=== PATIENT | female | born 1955 | race Caucasian/White ===

== ENCOUNTER → 2023-04-10 | Outpatient (CLI) | payer MEDICARE, BC ==
--- NOTE | 2023-04-12 19:09 | MR ---
EXAMINATION TYPE: MR lumbar spine wo con DATE OF EXAM: 04/10/2023 11:21 AM COMPARISON: None. CLINICAL INDICATION: Female, 67 years old with history of M54.16 RADICULOPATHY, LUMBAR REGION;Lower b ack and left hip pain. TECHNIQUE: Multi planar, multi sequence imaging was performed utilizing: T1-weighted, T2-weighted, a nd turbo inversion recovery imaging of the lumbar spine. IV Contrast: None FINDINGS: Alignment: The lumbar vertebral bodies have preserved heights grade 1 anterolisthesis of L4 and L5. M ild bony edema on the right pedicle at this level. Cord: The conus medullaris and the distal spinal cord appear unremarkable with regards to their signa l intensity and morphology. Bones/Discs: Multilevel degeneration changes with disc space narrowing, osteophyte formation and face t joint arthropathy. Disc desiccation is present multiple areas. T12-L1: No evidence of significant spinal canal stenosis or neural foraminal stenosis. L1-L2: No evidence of significant spinal canal stenosis or neural foraminal stenosis. L2-L3: No evidence of significant spinal canal stenosis. Facet joint arthropathy mild bilateral neura l foraminal stenosis. L3-L4: No evidence of significant spinal canal stenosis. Facet joint arthropathy mild bilateral neura l foraminal stenosis. L4-L5: Disc uncovering from grade 1 anterolisthesis and facet joint arthropathy with mild spinal maico l stenosis and mild bilateral neural foraminal stenosis. L5-S1: The disc is rounded posterior morphology without significant spinal canal stenosis. Facet join t arthropathy with mild neural foraminal stenosis. No significant spinal canal or neural foraminal stenosis in the remainder of the visualized levels. Other findings: None. IMPRESSION: 1. No definitive evidence of disc herniation or significant spinal canal stenosis. 2. Mild disc degeneration with associated osteoarthritic changes. 3. Grade 1 anterolisthesis of L4 on L5 with some stress reaction edema on the right pedicle.
== END | disposition home or self-care (01) ==
LOC: RADMRIMAIN 10:26
PROVIDERS: ATTEND Family Medicine
DX: M51.16 Intervertebral disc disorders with radiculopathy, lumbar region (principal); M43.16 Spondylolisthesis, lumbar region; M47.26 Other spondylosis with radiculopathy, lumbar region; M25.552 Pain in left hip; R60.0 Localized edema
CPT/HCPCS: 72148

== ENCOUNTER 2024-06-06 21:47 | Emergency (ER) | payer MEDICARE, BC ==
[2024-06-06 21:57] VITALS: RESP 20; TEMP 98.1
--- NOTE | 2024-06-06 22:24 | ED ---
Upper Extremity HPI - General Chief Complaint: Extremity Injury, Upper Stated Complaint: Fall/R Elbow Injury Time Seen by Provider: 06/06/24 22:21 Source: patient, RN notes reviewed Mode of arrival: ambulatory Limitations: no limitations - History of Present Illness Initial Comments: 68-year-old female presenting with left elbow injury x 7 hours ago. States she tripped and fell, hit her left elbow directly on concrete when she landed. Denies head injury or other injuries. Denies loss of consciousness. States since the fall, she has been icing her elbow, however the pain and swelling has increased. She states she cannot fully extend or flex her elbow. Denies numbness or tingling. - Related Data Allergies Allergy/AdvReac Type Severity Reaction Status Date / Time Penicillins Allergy Unknown Verified 06/06/24 21:57 Sulfa (Sulfonamide Allergy Nausea & Verified 06/06/24 21:57 Antibiotics) Vomiting & Diarrhea Review of Systems ROS Statement: Those systems with pertinent positive or pertinent negative responses have been documented in the HPI. ROS Other: All systems not noted in ROS Statement are negative. Past Medical History Past Medical History: Cancer History of Any Multi-Drug Resistant Organisms: None Reported Past Surgical History: No Surgical Hx Reported Past Psychological History: Anxiety Smoking Status: Never smoker Past Alcohol Use History: Occasional Past Drug Use History: Marijuana General Exam Limitations: no limitations General appearance: alert, in no apparent distress Head exam: Present: atraumatic, normocephalic, normal inspection Left Shoulder Exam: Present: normal inspection, full ROM. Absent: tenderness, swelling Upper Arm exam: Present: normal inspection, full ROM. Absent: tenderness, swelling Elbow exam: Present: tenderness, swelling. Absent: normal inspection (Diffuse edema on dorsal aspect of left elbow with tenderness to palpation along olecranon process. Limited full extension and full flexion of elbow.), full ROM Forearm Wrist exam: Present: normal inspection, full ROM. Absent: tenderness, swelling Hand Wrist exam: Present: normal inspection, full ROM. Absent: tenderness, swelling Vascular: Present: normal capillary refill, radial pulse (Sensation intact to bilateral upper extremities). Absent: vascular compromise Course Vital Signs 06/06/24 06/06/24 21:55 23:58 Temperature 98.1 F Pulse Rate 106 H 85 Respiratory 20 20 Rate Blood Pressure 150/99 160/98 O2 Sat by Pulse 97 99 Oximetry Procedures - Orthopedic Splinting/Casting Injury #1 Side: left Upper Extremity Injury Location: long arm Upper Extremity Immobilizer: posterior splint Other Orthopedic Equipment: other (Sling provided) Additional Comments: Neurovascularly intact status post procedure Medical Decision Making - Medical Decision Making Was pt. sent in by a medical professional or institution (, PA, [employer], urgent care, hospital, or [facility]...) When possible be specific @ -No Did you speak to anyone other than the patient for history (EMS, parent, family, police, friend...)? What history was obtained from this source @ -No Did you review nursing and triage notes (agree or disagree)? Why? @ -I reviewed and agree with nursing and triage notes Were old charts reviewed (outside hosp., previous admission, EMS record, old EKG, old radiological studies, urgent care reports/EKG's, [facility] records)? Report findings @ -No old charts were reviewed Differential Diagnosis (chest pain, altered mental status, abdominal pain women, abdominal pain men, vaginal bleeding, weakness, fever, dyspnea, syncope, headache, dizziness, GI bleed, back pain, seizure, CVA, palpatations, mental health, musculoskeletal)? @ -Differential Musculoskeletal Muscular strain, contusion, ligament sprain, fracture, arthritis, septic arthritis, bursitis, cellulitis, muscle spasm, nerve compression, DVT, arterial occlusion, herpes zoster, electrolyte abnormality, tumor.... This is not meant to be in all inclusive list EKG interpreted by me (3pts min.). @ -None X-rays interpreted by me (1pt min.). @ -X-ray revealed acute minimally displaced intra-articular fracture through radial head CT interpreted by me (1pt min.). @ -None done U/S interpreted by me (1pt. min.). @ -None done What testing was considered but not performed or refused? (CT, X-rays, U/S, labs)? Why? @ -None What meds were considered but not given or refused? Why? @ -None Did you discuss the management of the patient with other professionals (professionals i.e. AMANDA Gaona, [employer], lab, RT, psych nurse, social security assessor, parimutuel ticket cashier, teacher, airplane first officer, high risk case manager)? Give summary @ -No Was smoking cessation discussed for >3mins.? @ -No Was critical care preformed (if so, how long)? @ -No Were there social determinants of health that impacted care today? How? (Homelessness, low income, unemployed, alcoholism, drug addiction, transportation, low edu. Level, literacy, decrease access to med. care, shelter, rehab)? @ -No Was there de-escalation of care discussed even if they declined (Discuss DNR or withdrawal of care, Hospice)? DNR status @ -No What co-morbidities impacted this encounter? (DM, HTN, Smoking, COPD, CAD, Cancer, CVA, ARF, Chemo, Hep., AIDS, mental health diagnosis, sleep apnea, morbid obesity)? @ -None Was patient admitted / discharged? Hospital course, mention meds given and route, prescriptions, significant lab abnormalities, going to OR and other pertinent info. @ -Patient was discharged. This is a 68-year-old female presenting with left elbow injury earlier today. Patient is neurovascularly intact. X-ray revealed acute minimally displaced intra-articular fracture through her radial head. Findings discussed with patient. Posterior long-arm splint was applied and sling was given for support. Supportive care discussed. Advised orthopedic follow-up in 1 to 3 days and patient is agreeable to plan. Return precautions discussed. Case was discussed with my ED attending Dr. Tolliver. Patient discharged in stable condition. Undiagnosed new problem with uncertain prognosis? @ -No Drug Therapy requiring intensive monitoring for toxicity (Heparin, Nitro, Insulin, Cardizem)? @ -No Were any procedures done? @ -Steer long-arm splint Diagnosis/symptom? @ -Left radial head fracture Acute, or Chronic, or Acute on Chronic? @ -Acute Uncomplicated (without systemic symptoms) or Complicated (systemic symptoms)? @ -Uncomplicated Side effects of treatment? @ -No Exacerbation, Progression, or Severe Exacerbation? @ -No Poses a threat to life or bodily function? How? (Chest pain, [place], [place], pneumonia, PE, COPD, DKA, ARF, appy, cholecystitis, CVA, Diverticulitis, Homicidal, Suicidal, threat to staff... and all critical care pts) @ -No Disposition Clinical Impression: Left radial head fracture Disposition: HOME SELF-CARE Condition: Stable Instructions (If sedation given, give patient instructions): Elbow Fracture (ED) Additional Instructions: Follow up with orthopedics in 1-3 days. Keep splint dry. Use ice and elevation to left arm. Please return to the Emergency Department if symptoms worsen or any other concerns. Is patient prescribed a controlled substance at d/c from ED?: No Referrals: Slick Alex DO [Primary Care Provider] - 1-2 days Melo Robins MD [Medical Doctor] - 1-2 days Time of Disposition: 23:47
--- NOTE | 2024-06-06 22:39 | XR ---
EXAMINATION TYPE: XR elbow complete LT DATE OF EXAM: 06/06/2024 CLINICAL HISTORY: Fall injury with pain TECHNIQUE: Frontal, lateral and oblique images of the left elbow are obtained. COMPARISON: None FINDINGS: Suboptimal oblique positioning. There is acute slightly displaced intra-articular fracture through the radial aspect of the radial head seen on frontal view. Abnormal fat pad signs are noted o n lateral view. IMPRESSION: There is an acute minimally displaced intra-articular fracture through the radial head. [facility], , 06/06/2024 10:37 PM
[2024-06-07 00:08] VITALS: BP 160/98; PULSE 85
== END 2024-06-06 23:58 | disposition home or self-care (01) ==
LOC: EC 21:47

== ENCOUNTER → 2024-11-30 | Outpatient (CLI) | payer MEDICARE, BC | END | disposition home or self-care (01) | LOC: RADMAMWWP 10:07 | PROVIDERS: ATTEND Radiology Radiation Oncology | DX: Z53.9 Procedure and treatment not carried out, unspecified reason (principal) ==

== ENCOUNTER → 2024-11-30 | Outpatient (CLI) | payer MEDICARE, BC ==
--- NOTE | 2024-11-30 11:16 | BD ---
EXAMINATION TYPE: Axial Bone Density DATE OF EXAM: 11/30/2024 CLINICAL HISTORY: 69 years old Female. 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 Bone mineral density as measured about the Lumbar spine is: ----- L1-L4(G/cm2): 0.990 T Score Values are as follows: ----- L1: -2.0 ----- L2: -2.8 ----- L3: -1.0 ----- L4: -0.9 ----- L1-L4: -1.6 Z Score Values are as follows: ----- L1: -1.0 ----- L2: -1.8 ----- L3: -0.1 ----- L4: 0.1 ----- L1-L4: -0.[address] [facility] Bone mineral density about the R hip (g/cm2): 0.799 Bone mineral density about the L hip (g/cm2): 0.849 T Score values are as follows: -----R Neck: -2.2 -----L Neck: -1.6 -----R Total: -1.7 -----L Total: -1.3 Z Score values are as follows: -----R Neck: -1.1 -----L Neck: -0.5 -----R Total: -0.8 -----L Total: -0.[address] [facility] FRAX%s: The graph provided illustrates a 12.1% chance for a major osteoporotic fx and a 2.2% chance f or the hips probability for fx in 10 years time. IMPRESSION: Osteopenia (T Score between -2.5 and -1). There is slightly increased risk of fracture and the patient may be considered for treatment. Re-Screen 2-5 years. NOTE: T-SCORE=SD OF THE YOUNG ADULT MEAN. [facility], , 11/30/2024 11:13 AM
== END | disposition home or self-care (01) ==
LOC: RADBDWWP 10:09
PROVIDERS: ATTEND Internal Medicine Hematology & Oncology
DX: C50.812 Malignant neoplasm of overlapping sites of left female breast (principal); F41.9 Anxiety disorder, unspecified; M85.89 Other specified disorders of bone density and structure, multiple sites
CPT/HCPCS: 77080

== ENCOUNTER → 2024-12-03 | Outpatient (CLI) | payer MEDICARE, BC ==
--- NOTE | 2024-12-03 11:07 | MM ---
Reason for Exam: Hx of breast cancer, conservation therapy. Last screening mammogram was performed 9 month(s) ago. Patient History: Menarche at age 14. First Full-Term at age 23. 2023, Lumpectomy on the Left side. 2023, Radiation Therapy on the left side. Sister had breast cancer, age 44. Sister had breast cancer. Risk Values: Giovanna 5 year model risk: 6.8%. NCI Lifetime model risk: 21.6%. Prior Study Comparison: 12/11/2022 Bilateral Screening Mammogram, Unknown. 12/16/2023 Bilateral Screening Mammogram, Unknown. 01/08/2024 Left Diagnostic Mammogram, Unknown. 01/22/2024 Left Diagnostic Mammogram, Unknown. 02/26/2024 Left Diagnostic Mammogram, Unknown. Tissue Density: There are scattered areas of fibroglandular density. Findings: Analyzed By CAD. Presumed Post treatment changes with distortion and surgical clips in the left breast outer aspect. No new mass or worrisome cluster of microcalcification either breast. Overall Assessment: Probably benign, BI-RAD 3 Management: Diagnostic Mammogram of the left breast in 6 months. Precautionary short-term follow-up establishing new left breast mammogram baseline. Results were given to the patient verbally at the time of exam. Patient should continue monthly self-breast exams. A clinical breast exam by your physician is recommended on an annual basis. This exam should not preclude additional follow-up of suspicious palpable abnormalities. Note on Giovanna scores and lifetime risk: 1. A Giovanna score greater than 3% is considered moderate risk. If this is the case, consider specialist referral to assess eligibility for a risk reducing agent. 2. If overall lifetime risk for the development of breast cancer is 20% or higher, the patient may qualify for future screening with alternating mammogram and breast MRI. [facility], , 12/03/2024 11:02 AM. Electronically signed and approved by: Angel Mcfadden M.D.
== END | disposition home or self-care (01) ==
LOC: RADMAMWWP 10:29
PROVIDERS: ATTEND Radiology Radiation Oncology
DX: C50.412 Malignant neoplasm of upper-outer quadrant of left female breast (principal); C50.812 Malignant neoplasm of overlapping sites of left female breast; R92.323 Mammographic fibroglandular density, bilateral breasts; Z17.0 Estrogen receptor positive status [ER+]; Z80.3 Family history of malignant neoplasm of breast
CPT/HCPCS: 77066; G0279; 77062